=== PATIENT | male | born 1990 | race Caucasian/White ===

== ENCOUNTER 2017-03-01 09:08 | Observation (INO) | payer BC ==
[~2017-03-01] VITALS: Ht 190.5 cm; Wt 82.0 kg
[2017-03-01 09:09] VITALS: BP 114/79; PULSE 88; RESP 22; TEMP 98.4; O2SAT 97
[2017-03-01] MEDS ORDERED: SODIUM CHLOR 0.9% 1000 ML INJ 1,000 ML IV SCH (09:35)
[2017-03-01] MEDS ORDERED: ONDANSETRON HCL 4 MG/2 ML VIAL IVP ONE (09:45)
[2017-03-01] MEDS ORDERED: MORPHINE SULFATE 2 MG/ML INJ IV PUSH ONE (09:45)
[2017-03-01] MEDS ORDERED: SODIUM CHLORIDE 0.9% FLUSH 10 ML FLUSH IV FLUSH PRN ×2 (09:45→14:45)
[2017-03-01 10:07] LABS: AUTOMATED NEUTROPHIL # 8.2 TH/MM3 (1.8-7.7); BASOPHIL % 0.3 % (0.0-2.0); EOSINOPHIL # 0.4 TH/MM3 (0-0.4); EOSINOPHIL % 3.2 % (0.0-4.0); HEMATOCRIT 49.1 % (39.0-51.0); HEMOGLOBIN 16.7 GM/DL (13.0-17.0); LYMPHOCYTE # 2.5 TH/MM3 (1.0-4.8); MEAN CELL VOLUME 93.2 FL (80.0-100.0); MEAN CORPUSCULAR HEMOGLOBIN 31.8 PG (27.0-34.0); MEAN CORPUSCULAR HGB CONC 34.1 % (32.0-36.0); MEAN PLATELET VOLUME 11.3 FL (7.0-11.0); MONOCYTE # 1.5 TH/MM3 (0-0.9); NEUT % 64.5 % (16.0-70.0); PLATELET COUNT 180 TH/MM3 (150-450); RED BLOOD COUNT 5.27 MIL/MM3 (4.50-5.90); RED CELL DISTRIBUTION WIDTH 13.5 % (11.6-17.2); WHITE BLOOD COUNT 12.7 TH/MM3 (4.0-11.0)
[2017-03-01 10:15] LABS: PROTHROMBIN TIME - PATIENT 10.2 SEC (9.8-11.6)
[2017-03-01 10:34] LABS: BICARBONATE 20.7 MEQ/L (21.0-32.0); CALCIUM 9.1 MG/DL (8.5-10.1); CREATININE 1.06 MG/DL (0.60-1.30)
[2017-03-01] MEDS ORDERED: IOHEXOL 350 MG/ML 10 ML VIAL (for RAD DIAG) IVCONTRAST ONE (10:54)
--- NOTE | 2017-03-01 11:12 | RADRPT ---
EXAM DATE/TIME: 03/01/2017 10:41 [place] COMPARISON: No previous studies available for comparison. INDICATIONS : Nausea, vomiting and diarrhea IV CONTRAST: 96 cc Omnipaque 350 (iohexol) IV ORAL CONTRAST: No oral contrast ingested. RADIATION DOSE: 6.64 CTDIvol (mGy) MEDICAL HISTORY : Pancreatitis. SURGICAL HISTORY : None. ENCOUNTER: Initial ACUITY: 1 day PAIN SCALE: 6/10 LOCATION: lower quadrant TECHNIQUE: Volumetric scanning of the abdomen and pelvis was performed. Using automated exposure control and ad justment of the mA and/or kV according to patient size, radiation dose was kept as low as reasonably achievable to obtain optimal diagnostic quality images. DICOM format image data is available electro nically for review and comparison. FINDINGS: LOWER LUNGS: The visualized lower lungs are clear. LIVER: Homogeneous density without lesion. There is no dilation of the biliary tree. No calcified gallston es. SPLEEN: Normal size without lesion. PANCREAS: Within normal limits. KIDNEYS: Normal in size and shape. There is no mass, stone or hydronephrosis. ADRENAL GLANDS: Within normal limits. VASCULAR: There is no aortic aneurysm. BOWEL/MESENTERY: The stomach, small bowel, and colon demonstrate no acute abnormality. There is no free intraperitone al air or fluid. ABDOMINAL WALL: Within normal limits. RETROPERITONEUM: There is no lymphadenopathy. BLADDER: No wall thickening or mass. REPRODUCTIVE: Within normal limits. INGUINAL: There is no lymphadenopathy or hernia. MUSCULOSKELETAL: Within normal limits for patient age. CONCLUSION: No acute disease. Josiah Werner MD on March 01, 2017 at 11:08 Board Certified Radiologist. This report was verified electronically.
[2017-03-01] MEDS ORDERED: PROCHLORPERAZINE INJ 10 MG/2 ML VIAL IV PUSH ONE (11:30)
[2017-03-01] MEDS ORDERED: FAMOTIDINE 20 MG/2 ML VIAL IV PUSH ONE (11:30)
[2017-03-01] MEDS ORDERED: SODIUM CHLOR 0.9% 1000 ML INJ 1,000 ML IV ONE (11:30)
[2017-03-01 12:01] VITALS: BP 144/91; PULSE 56; RESP 17; O2SAT 100
--- NOTE | 2017-03-01 14:19 | PD ---
HPI Chief Complaint: GI Complaint Time Seen by Provider: 09:24 Travel History International Travel<30 days: No Contact w/Intl Traveler<30days: No Traveled to known affect area: No History of Present Illness HPI Patient is a 26-year-old male who comes in complaining of nausea and vomiting. He says this is been going on since the . He went to an urgent care and was given Zofran. He says this is not helping. He says he felt better yesterday, he did eat, but then the vomiting started again today. He says he has history of pancreatitis, and is having spasms in his upper abdomen. He says he has had multiple tests done by gastroenterology and they have not found a source of his pancreatitis or his episodes of vomiting. He does smoke weed daily. He has been having some episodes of diarrhea. She denies fever or chills. PFSH Past Medical History Medical History: Denies Significant Hx Diminished Hearing: No ?: Not Social History Alcohol Use: No Tobacco Use: Yes Substance Use: No Allergies-Medications (Allergen,Severity, Reaction): Coded Allergies: No Known Allergies (Unverified , 03/01/17) Reported Meds & Prescriptions Reported Meds & Active Scripts Active No Active Prescriptions or Reported Medications Review of Systems Except as stated in HPI: all other systems reviewed are Neg General / Constitutional: No: Fever, Chills HENT: No: Headaches, Lightheadedness Cardiovascular: No: Chest Pain or Discomfort Respiratory: No: Shortness of Breath Gastrointestinal: Positive: Nausea, Vomiting, Diarrhea, Abdominal Pain Genitourinary: No: Dysuria Musculoskeletal: No: Myalgias, Edema Skin: No Rash, No Itching, No Change in Pigmentation Neurologic: No: Weakness, Dizziness Physical Exam Narrative GENERAL: Awake and alert, in no acute distress. SKIN: Focused skin assessment warm/dry. HEAD: Atraumatic. Normocephalic. EYES: Pupils equal and round. No scleral icterus. ENT: Mucous membranes pink and moist. NECK: Trachea midline. No JVD. CARDIOVASCULAR: Regular rate and rhythm. No murmur appreciated. RESPIRATORY: No accessory muscle use. Clear to auscultation. Breath sounds equal bilaterally. GASTROINTESTINAL: Abdomen soft, nondistended. Tender to palpation of the epigastric area. No rebound or guarding. MUSCULOSKELETAL: No obvious deformities. No clubbing. No cyanosis. No edema. NEUROLOGICAL: Awake and alert. No obvious cranial nerve deficits. Motor grossly within normal limits. Normal speech. PSYCHIATRIC: Appropriate mood and affect; insight and judgment normal. Data Data Last Documented VS Vital Signs Date Time Temp Pulse Resp B/P (MAP) Pulse Ox O2 Delivery O2 Flow Rate FiO2 03/01/17 12:01 56 17 144/91 (108) 100 03/01/17 09:09 98.4 Orders Orders Basic Metabolic Panel (Bmp) (03/01/17 09:35) Complete Blood Count With Diff (03/01/17 09:35) Lipase (03/01/17 09:35) Prothrombin Time / Inr (Pt) (03/01/17 09:35) Act Partial Throm Time (Ptt) (03/01/17 09:35) Ct Abd/Pel W Iv Contrast(Rout) (03/01/17 09:35) Iv Access Insert/Monitor (03/01/17 09:35) Ecg Monitoring (03/01/17 09:35) Oximetry (03/01/17 09:35) Ondansetron Inj (Zofran Inj) (03/01/17 09:45) Sodium Chlor 0.9% 1000 Ml Inj (Ns 1000 M (03/01/17 09:35) Sodium Chloride 0.9% Flush (Ns Flush) (03/01/17 09:45) Morphine Inj (Morphine Inj) (03/01/17 09:45) Iohexol 350 Inj (Omnipaque 350 Inj) (03/01/17 10:54) Prochlorperazine Inj (Compazine Inj) (03/01/17 11:30) Famotidine Inj (Pepcid Inj) (03/01/17 11:30) Sodium Chlor 0.9% 1000 Ml Inj (Ns 1000 M (03/01/17 11:30) Admit Order (Ed Use Only) (03/01/17 ) Labs Laboratory Tests Test 03/01/17 09:20 White Blood Count 12.7 TH/MM3 Red Blood Count 5.27 MIL/MM3 Hemoglobin 16.7 GM/DL Hematocrit 49.1 % Mean Corpuscular Volume 93.2 FL Mean Corpuscular Hemoglobin 31.8 PG Mean Corpuscular Hemoglobin Concent 34.1 % Red Cell Distribution Width 13.5 % Platelet Count 180 TH/MM3 Mean Platelet Volume 11.3 FL Neutrophils (%) (Auto) 64.5 % Lymphocytes (%) (Auto) 20.0 % Monocytes (%) (Auto) 12.0 % Eosinophils (%) (Auto) 3.2 % Basophils (%) (Auto) 0.3 % Neutrophils # (Auto) 8.2 TH/MM3 Lymphocytes # (Auto) 2.5 TH/MM3 Monocytes # (Auto) 1.5 TH/MM3 Eosinophils # (Auto) 0.4 TH/MM3 Basophils # (Auto) 0.0 TH/MM3 CBC Comment DIFF FINAL Differential Comment Prothrombin Time 10.2 SEC Prothromb Time International Ratio 1.0 RATIO Activated Partial Thromboplast Time 25.7 SEC Blood Urea Nitrogen 16 MG/DL Creatinine 1.06 MG/DL Random Glucose 101 MG/DL Calcium Level 9.1 MG/DL Sodium Level 138 MEQ/L Potassium Level 3.8 MEQ/L Chloride Level 105 MEQ/L Carbon Dioxide Level 20.7 MEQ/L Anion Gap 12 MEQ/L Estimat Glomerular Filtration Rate 83 ML/MIN Lipase 109 U/L [facility] Medical Decision Making Medical Screen Exam Complete: Yes Emergency Medical Condition: Yes Medical Record Reviewed: Yes Differential Diagnosis Pancreatitis versus gastritis versus gastroparesis versus gastroenteritis versus cannabis hyperemesis Narrative Course Patient is a 26-year-old male comes in complaining of nausea vomiting and upper abdominal pain. Exam shows tenderness to the upper abdomen. IV established, labs sent. Labs show slight elevation in white blood cell count. CT abdomen and pelvis performed shows no acute abnormalities. Patient given IV fluids and Zofran as well as a dose of morphine. He however, continued to vomit. He was then given a dose of Compazine, but would wake up and vomit more. He says he is not feeling better. He'll be placed in observation for intractable vomiting. Diagnosis Primary Impression: Intractable nausea and vomiting Qualified Codes: R11.2 - Nausea with vomiting, unspecified Admitting Information Admitting Physician Requests: Observation Scripts No Active Prescriptions or Reported Meds Mikaela Sparks MD Mar 01, 2017 14:19
[2017-03-01] MEDS ORDERED: ONDANSETRON HCL 4 MG/2 ML VIAL IVP PRN (14:45)
[2017-03-01] MEDS ORDERED: NALOXONE HCL 0.4 MG/ML AMP IV PUSH PRN (14:45)
[2017-03-01] MEDS ORDERED: METOCLOPRAMIDE HCL 10 MG/2 ML VIAL IV PUSH PRN (14:45)
--- NOTE | 2017-03-01 15:06 | HHI.HP ---
[facility] Service [facility] Primary Care Physician No Primary Care Physician Admission Diagnosis Intractable vomiting Diagnoses: Chief Complaint: nausea/vomiting/diarrhea Travel History International Travel<30 Days: No Contact w/Intl Traveler <30 Da: No Traveled to Known Affected Are: No History of Present Illness Written by Allison Dooley, acting as scribe for Dr. Rodriguez on 03/01/17 at 14: 59. 26-year-old male with history of recurrent nausea/vomiting episodes, marijuana use, tobacco use, presents with a 3 day history of intractable nausea, vomiting , and diarrhea. The patient reports 3 nights ago on 02/26 he attended a cook out where he ate multiple different smoked meats. Later that night he started experiencing intractable nausea, vomiting, and few episodes of diarrhea. He was taking his previously prescribed Zofran as needed with minimal relief. He went to an urgent care on 02/27, received 2 liters of IV fluids and an IM Phenergan injection. He did vomit once later that night but then he felt slightly better. He was then able to eat only small amount of food the next day however woke up this morning with recurrent intractable nausea, vomiting and nonbloody diarrhea. He denies any fevers/chills or abdominal pain. He denies any sick contacts. The patient reports a long history of nausea/vomiting episodes occurring 3-4 times per year over the past 7 years. He states previously he's had episodes of pancreatitis and food poisoning but the symptoms usually go away after 1-2 days. He sees a hydraulic assembler in [place] and has had an unremarkable work up with EGD and colonoscopy. He does smoke marijuana daily but states the marijuana usually helps with his nausea. He is currently seen in the ER after receiving IV Compazine which did help relieve his symptoms. He has no other medical complaints to report at this time. Review of Systems Except as stated in HPI: all other systems reviewed are Neg Past Family Social History Past Medical History asthma as a child recurrent nausea/vomiting Past Surgical History Right shoulder surgery at age 15 EGD/colonoscopy Reported Medications Zofran prn Allergies: Coded Allergies: No Known Allergies (Unverified , 03/01/17) Active Ordered Medications Current Medications Medications (Trade) Dose Ordered Sig/Gunnar Route Start Time Stop Time Status Last Admin Sodium Chloride 1,000 ml @ 100 mls/hr Q10H IV 03/01/17 15:00 (NS Flush) 2 ml UNSCH PRN IV FLUSH 03/01/17 14:45 (NS Flush) 2 ml BID IV FLUSH 03/01/17 21:00 (Zofran Inj) 4 mg Q6H PRN IVP 03/01/17 14:45 (Reglan Inj) 5 mg Q6H PRN IV PUSH 03/01/17 14:45 (Narcan Inj) 0.4 mg UNSCH PRN IV PUSH 03/01/17 14:45 Family History Maternal Grandmother with possible Ulcerative Colitis Maternal Great Grandmother with Colon Cancer Social History Smokes tobacco, 1/2 to 1 PPD Denies any alcohol use Smokes marijuana daily Physical Exam Vital Signs Vital Signs Date Time Temp Pulse Resp B/P (MAP) Pulse Ox O2 Delivery O2 Flow Rate FiO2 03/01/17 12:01 56 17 144/91 (108) 100 03/01/17 10:00 17 03/01/17 09:09 98.4 88 22 114/79 (91) 97 Physical Exam GENERAL: Well-nourished, well-developed young male patient in [facility]. SKIN: Warm and dry. No rash. HEAD: Normocephalic. Atraumatic. EYES: Pupils equal and round. No scleral icterus. No injection or drainage. ENT: No nasal bleeding or discharge. Mucous membranes pink and moist. NECK: Supple. Trachea midline. CARDIOVASCULAR: Regular rate and rhythm. S1, S2 noted. No murmur appreciated. RESPIRATORY: No accessory muscle use. Clear to auscultation. Breath sounds equal bilaterally. GASTROINTESTINAL: Abdomen soft, non-tender, nondistended. Normoactive bowel sounds x4. MUSCULOSKELETAL: No obvious deformities. Extremities without clubbing, cyanosis , or edema. NEUROLOGICAL: Awake and alert. No obvious cranial nerve deficits. Motor grossly within normal limits. Moves all extremities spontaneously. Normal speech. PSYCHIATRIC: Appropriate mood and affect; insight and judgment normal. Laboratory Laboratory Tests Test 03/01/17 09:20 White Blood Count 12.7 Red Blood Count 5.27 Hemoglobin 16.7 Hematocrit 49.1 Mean Corpuscular Volume 93.2 Mean Corpuscular Hemoglobin 31.8 Mean Corpuscular Hemoglobin Concent 34.1 Red Cell Distribution Width 13.5 Platelet Count 180 Mean Platelet Volume 11.3 Neutrophils (%) (Auto) 64.5 Lymphocytes (%) (Auto) 20.0 Monocytes (%) (Auto) 12.0 Eosinophils (%) (Auto) 3.2 Basophils (%) (Auto) 0.3 Neutrophils # (Auto) 8.2 Lymphocytes # (Auto) 2.5 Monocytes # (Auto) 1.5 Eosinophils # (Auto) 0.4 Basophils # (Auto) 0.0 CBC Comment DIFF FINAL Differential Comment Prothrombin Time 10.2 Prothromb Time International Ratio 1.0 Activated Partial Thromboplast Time 25.7 Blood Urea Nitrogen 16 Creatinine 1.06 Random Glucose 101 Calcium Level 9.1 Sodium Level 138 Potassium Level 3.8 Chloride Level 105 Carbon Dioxide Level 20.7 Anion Gap 12 Estimat Glomerular Filtration Rate 83 Lipase 109 Result Diagram: 03/01/1791903/01/17919 Imaging Last Impressions Abdomen/Pelvis CT 03/01/1735 Signed Impressions: Service Date/Time: Wednesday, March 01, 2017 10:41 - CONCLUSION: No acute disease. Josiah Werner MD Caprini VTE Risk Assessment Caprini VTE Risk Assessment: No/Low Risk (score <= 1) Caprini Risk Assessment Model Point Value = 1 Point Value = 2 Point Value = 3 Point Value = 5 Age 41-60 Minor surgery BMI > 25 kg/m2 Swollen legs Varicose veins or History of unexplained or recurrent spontaneous Oral contraceptives or hormone replacement Sepsis (< 1 month) Serious lung disease, including pneumonia (< 1 month) Abnormal pulmonary function Acute myocardial infarction Congestive heart failure (< 1 month) History of inflammatory bowel disease Medical patient at bed rest Age 61-74 Arthroscopic surgery Major open surgery (> 45 min) Laparoscopic surgery (> 45 min) Malignancy Confined to bed (> 72 hours) Immobilizing plaster cast Central venous access Age >= 75 History of VTE Family history of VTE Factor V Leiden Prothrombin [id number] Lupus anticoagulant Anticardiolipin antibodies Elevated serum homocysteine Heparin-induced thrombocytopenia Other congenital or acquired thrombophilia Stroke (< 1 month) Elective arthroplasty Hip, pelvis, or leg fracture Acute spinal cord injury (< 1 month) Prophylaxis Regimen Total Risk Factor Score Risk Level Prophylaxis Regimen 0-1 Low Early ambulation 2 Moderate Order ONE of the following: *Sequential Compression Device (SCD) *Heparin 5000 units SQ BID 3-4 Higher Order ONE of the following medications: *Heparin 5000 units SQ TID *Enoxaparin/Lovenox 40 mg SQ daily (WT < 150 kg, CrCl > 30 mL/min) *Enoxaparin/Lovenox 30 mg SQ daily (WT < 150 kg, CrCl > 10-29 mL/min) *Enoxaparin/Lovenox 30 mg SQ BID (WT < 150 kg, CrCl > 30 mL/min) AND/OR *Sequential Compression Device (SCD) 5 or more Highest Order ONE of the following medications: *Heparin 5000 units SQ TID (Preferred with Epidurals) *Enoxaparin/Lovenox 40 mg SQ daily (WT < 150 kg, CrCl > 30 mL/min) *Enoxaparin/Lovenox 30 mg SQ daily (WT < 150 kg, CrCl > 10-29 mL/min) *Enoxaparin/Lovenox 30 mg SQ BID (WT < 150 kg, CrCl > 30 mL/min) AND *Sequential Compression Device (SCD) Assessment and Plan Problem List: (1) Intractable nausea and vomiting ICD Code: R11.2 - Nausea with vomiting, unspecified (2) Diarrhea ICD Code: R19.7 - Diarrhea, unspecified Assessment and Plan 26-year-old male with history of recurrent nausea/vomiting episodes, marijuana use, tobacco use, presents with a 3 day history of intractable nausea, vomiting , and diarrhea. Intractable Nausea/Vomiting/Diarrhea: Suspect Gastroenteritis this episode, however given frequency/recurrence of symptoms, patient likely has underlying Cyclic Vomiting Syndrome vs Cannabinoid Hyperemesis Syndrome. -CT abd/pelvis images reviewed, no acute findings -Check stool studies -Continue IV Compazine prn nausea/vomiting (patient has minimal relief with Zofran) -Give Imitrex 6mg sq x1 and monitor for improvement -Continue supportive treatment with IVF hydration -Clear liquid diet for now, plan to advance as tolerated -Outpatient f/up with his hydraulic assembler in [place] Marijuana Use: counseled on cessation, may be contributing to above symptoms Tobacco use: counseled on cessation. patient declines nicotine patch for now. DVT Prophylaxis: teds/SCDs Discussed Condition With Patient, Patient's Mother at bedside, ER This note was transcribed by scribe [Allison Dooley]. I, Dr. Petar Rodriguez personally performed the history, physical exam, and medical decision making; and confirmed the accuracy of the information in the transcribed note. Authenticated by Dr. Petar Rodriguez on 03/01/17 at 16:00. Problem Qualifiers (1) Intractable nausea and vomiting: Qualified Codes: R11.2 - Nausea with vomiting, unspecified Allison Dooley PA-C Mar 01, 2017 15:06 Petar Rodriguez MD Mar 01, 2017 16:00
[2017-03-01] MEDS ORDERED: SUMAtriptan INJ 6 MG/0.5 ML VIAL SQ ONE (15:45)
[2017-03-01] MEDS ORDERED: PROCHLORPERAZINE INJ 10 MG/2 ML VIAL IV PUSH PRN (15:45)
[2017-03-01 16:25] VITALS: BP 124/73; PULSE 53; RESP 18; TEMP 98.6; O2SAT 100
[2017-03-01] MEDS: SODIUM CHLOR 0.9% 1000 ML INJ 1,000 ML IV SCH (17:30)
[2017-03-01] MEDS: SODIUM CHLORIDE 0.9% FLUSH 10 ML FLUSH IV FLUSH SCH (21:00)
[2017-03-01 21:21] VITALS: BP 130/66; PULSE 74; RESP 18; TEMP 98.7; O2SAT 99
[2017-03-02 03:12] VITALS: BP 127/70; PULSE 54; RESP 18; O2SAT 97
[2017-03-02] MEDS: SODIUM CHLOR 0.9% 1000 ML INJ 1,000 ML IV SCH ×2 (03:12→11:00)
[2017-03-02 07:29] VITALS: BP 123/79; PULSE 70; RESP 18; TEMP 97.9; O2SAT 98
[2017-03-02] MEDS: SODIUM CHLORIDE 0.9% FLUSH 10 ML FLUSH IV FLUSH SCH (08:36)
[2017-03-02] MEDS ORDERED: TOPI25TA7 PO (10:07)
[2017-03-02] MEDS ORDERED: SUMA25TA2 PO (10:07)
[2017-03-02] MEDS ORDERED: PROM25TA10 PO (10:07)
--- NOTE | 2017-03-02 10:19 | HHI.DCPOC ---
Discharge Care Plan Diagnosis: (1) Cyclic vomiting syndrome (2) Intractable nausea and vomiting Goals to Promote Your Health * To prevent worsening of your condition and complications * To maintain your health at the optimal level Directions to Meet Your Goals Take your medications as prescribed Follow your dietary instruction Follow activity as directed Keep your appointments as scheduled Take your immunizations and boosters as scheduled If your symptoms worsen call your PCP, if no PCP go to Urgent Care Center or Emergency Room Smoking is Dangerous to Your Health. Avoid second hand smoke Call the 24-hour hour crisis hotline for domestic abuse at Allison Dooley PA-C Mar 02, 2017 10:19 am
--- NOTE | 2017-03-02 10:32 | HHI.PR ---
Subjective Remarks Follow-up for intractable nausea/vomiting. The patient reports feeling much better today. He believes the Imitrex is what helped improve his symptoms. He denies any further nausea or vomiting since he was in the ER yesterday. He has had two small episodes of diarrhea since his arrival, also improved. Denies any abdominal pain. Denies any fevers or chills. He was able to tolerate his clear liquid tray for breakfast and would like to advance his diet. He is comfortable going home after lunch. Discussed with the patient's mother and father at bedside. Objective Vitals Vital Signs Date Time Temp Pulse Resp B/P (MAP) Pulse Ox O2 Delivery O2 Flow Rate FiO2 03/02/17 07:29 97.9 70 18 123/79 (94) 98 03/02/17 03:12 54 18 127/70 (89) 97 03/01/17 21:21 98.7 74 18 130/66 (87) 99 03/01/17 16:25 98.6 53 18 124/73 (90) 100 03/01/17 16:08 03/01/17 12:01 56 17 144/91 (108) 100 I/O 03/01/17 03/01/17 03/01/17 03/02/17 03/02/17 03/02/17 07:00 15:00 23:00 07:00 15:00 23:00 Intake Total 2000 ml 240 ml 240 ml Balance 2000 ml 240 ml 240 ml Intake Oral 240 ml 240 ml IV Total 2000 ml # Voids 3 Result Diagram: 03/01/1791903/01/17 0920 Imaging Last Impressions Abdomen/Pelvis CT 03/01/1735 Signed Impressions: Service Date/Time: Wednesday, March 01, 2017 10:41 - CONCLUSION: No acute disease. Josiah Werner MD Objective Remarks GENERAL: Well-nourished, well-developed young male patient in [facility]. SKIN: Warm and dry. No rash. HEENT: Normocephalic. Atraumatic.Pupils equal and round. Mucous membranes pink and moist. CARDIOVASCULAR: Regular rate and rhythm. S1, S2 noted. No murmur appreciated. RESPIRATORY: No accessory muscle use. Clear to auscultation. Breath sounds equal bilaterally. GASTROINTESTINAL: Abdomen soft, non-tender, nondistended. Normoactive bowel sounds x4. MUSCULOSKELETAL: No obvious deformities. Extremities without clubbing, cyanosis , or edema. NEUROLOGICAL: Awake and alert. No obvious cranial nerve deficits. Motor grossly within normal limits. Normal speech. PSYCHIATRIC: Appropriate mood and affect; insight and judgment normal. Medications and IVs Current Medications Medications (Trade) Dose Ordered Sig/Gunnar Route Start Time Stop Time Status Last Admin Sodium Chloride 1,000 ml @ 100 mls/hr Q10H IV 03/01/17 15:00 03/02/17 03:12 (NS Flush) 2 ml UNSCH PRN IV FLUSH 03/01/17 14:45 (NS Flush) 2 ml BID IV FLUSH 03/01/17 21:00 (Reglan Inj) 5 mg Q6H PRN IV PUSH 03/01/17 14:45 (Narcan Inj) 0.4 mg UNSCH PRN IV PUSH 03/01/17 14:45 (Compazine Inj) 10 mg Q6H PRN IV PUSH 03/01/17 15:45 A/P Problem List: (1) Intractable nausea and vomiting ICD Code: R11.2 - Nausea with vomiting, unspecified (2) Diarrhea ICD Code: R19.7 - Diarrhea, unspecified Assessment and Plan 26-year-old male with history of recurrent nausea/vomiting episodes, marijuana use, tobacco use, presents with a 3 day history of intractable nausea, vomiting , and diarrhea. Intractable Nausea/Vomiting/Diarrhea: Suspect Gastroenteritis this episode, however given frequency/recurrence of symptoms, patient likely has underlying Cyclic Vomiting Syndrome vs Cannabinoid Hyperemesis Syndrome. -CT abd/pelvis images reviewed, no acute findings -Stool studies ordered however not collected as diarrhea improved -Given IV Compazine prn nausea/vomiting (patient has minimal relief with Zofran) -Given Imitrex 6mg sq x1 which helped his symptoms -Continue supportive treatment with IVF hydration -Tolerated clear liquid diet, advanced to regular/bland diet for lunch, if tolerates well, will discharge home -discussed extensively with patient and mother; per attending Dr. 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 Tobacco use: counseled on cessation. patient declines nicotine patch for now. DVT Prophylaxis: teds/SCDs Discussed with Dr. Rodriguez, patient, patient's mom/dad, filter tank operator Planning Discharge patient to home Condition on discharge: Improved Regular Diet as tolerated Ad Sonia activity Rx written: Imitrex 25mg prn, Topamax 25mg po bid prn, Phenergan 25mg q8h prn N/ V Follow-up with primary care physician and chemical etching processor Problem Qualifiers (1) Intractable nausea and vomiting: Qualified Codes: R11.2 - Nausea with vomiting, unspecified Allison Dooley PA-C Mar 02, 2017 10:32 am
[2017-03-02 11:26] LABS: AUTOMATED NEUTROPHIL # 4.7 TH/MM3 (1.8-7.7); BASOPHIL % 0.5 % (0.0-2.0); EOSINOPHIL # 0.2 TH/MM3 (0-0.4); EOSINOPHIL % 2.4 % (0.0-4.0); HEMATOCRIT 42.3 % (39.0-51.0); HEMOGLOBIN 14.5 GM/DL (13.0-17.0); LYMPH % 25.7 % (9.0-44.0); MEAN CELL VOLUME 92.7 FL (80.0-100.0); MEAN CORPUSCULAR HEMOGLOBIN 31.8 PG (27.0-34.0); MEAN CORPUSCULAR HGB CONC 34.3 % (32.0-36.0); MEAN PLATELET VOLUME 10.9 FL (7.0-11.0); MONOCYTE # 0.7 TH/MM3 (0-0.9); NEUT % 62.4 % (16.0-70.0); PLATELET COUNT 144 TH/MM3 (150-450); RED BLOOD COUNT 4.56 MIL/MM3 (4.50-5.90); RED CELL DISTRIBUTION WIDTH 13.3 % (11.6-17.2); WHITE BLOOD COUNT 7.6 TH/MM3 (4.0-11.0)
[2017-03-02 12:05] VITALS: BP 130/76; PULSE 55; RESP 20; TEMP 98.1; O2SAT 99
== END 2017-03-02 13:38 | disposition home or self-care (01) ==
LOC: NEPC 09:08 → NEDA 14:28 → NEPFCDU 16:13
PROVIDERS: ADMIT Hospitalist; ATTEND Hospitalist
DX: G43.A0 Cyclical vomiting, in migraine, not intractable (principal); R19.7 Diarrhea, unspecified; F12.90 Cannabis use, unspecified, uncomplicated; Z72.0 Tobacco use
CPT/HCPCS: 74177; 80048; 82550; 83690; 85025; 85610; 85730; 96361; 96372; 96374; 96375; 99285; G0378; J0780; J2270; J2405; J3030; J7030; Q9967